=== PATIENT | female | born 2000 | race American Indian/Alaskan Native ===

== ENCOUNTER 2022-09-23 22:22 | Emergency (ER) | payer OTHER ==
[2022-09-23 22:40] VITALS: BP 111/57; PULSE 68; RESP 18; TEMP 97.7; BMI 21.9
== END 2022-09-24 00:44 | disposition home or self-care (01) ==
LOC: JER 22:22
DX: S06.0X1A Concussion with loss of consciousness of 30 minutes or less, initial encounter (principal); R51.9 Headache, unspecified; R11.2 Nausea with vomiting, unspecified; W21.02XA Struck by soccer ball, initial encounter; Y93.01 Activity, walking, marching and hiking
CPT/HCPCS: 70450-TC; 72125-TC; 99284-25